=== PATIENT | male | born 1975 | race Caucasian/White ===

== ENCOUNTER 2016-12-14 20:39 | Emergency (ER) | payer OTHER ==
[~2016-12-14] VITALS: Ht 180.3 cm; Wt 94.9 kg
[2016-12-14] MEDS ORDERED: PERCOCET 5/31 TABLET PO (21:05)
[2016-12-14] MEDS ORDERED: VALIUM5 MG PO (21:05)
[2016-12-14] MEDS ORDERED: MEDROL DOSEPAK4 MG PO (21:05)
[2016-12-14 21:20] VITALS: BP 132/94
== END 2016-12-14 21:21 | disposition home or self-care (01) ==
LOC: EME 20:39 → EXP 20:39
DX: M54.5 Low back pain (principal)
CPT/HCPCS: 99281; 99283

== ENCOUNTER → 2017-04-09 | Outpatient (CLI) | payer BC, MEDICARE ==
[~2017-04-09] MED LIST: MEDROL DOSEPAK4 MG PO; PERCOCET 5/31 TABLET PO; VALIUM5 MG PO
== END | disposition home or self-care (01) ==
LOC: CDC 10:38
DX: Z01.810 Encounter for preprocedural cardiovascular examination (principal); M79.642 Pain in left hand; M20.032 Swan-neck deformity of left finger(s); M67.432 Ganglion, left wrist; I49.8 Other specified cardiac arrhythmias; R94.31 Abnormal electrocardiogram [ECG] [EKG]
CPT/HCPCS: 93000